=== PATIENT | male | born 1955 ===

== ENCOUNTER 2018-06-17 08:47 | Emergency (ER) | payer SELFPAY ==
[2018-06-17 08:49] VITALS: BMI 30.8
[2018-06-17 08:53] VITALS: TEMP 97.7
--- NOTE | 2018-06-17 09:39 | C.PDOC ---
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 presents to the ER with c/o new onset vertigo, dizziness since this morning. Patient reports it was present when he woke up, "feels like I am spinning". Associated symptoms includes headache. Patient states his BP is "207 " [employer]. Patient notes he took his BP medication and his BP has now improved. Patient denies n/v, URI, chest pain, palpitations, and new focal weakness. NEW ONSET VERTIGO DIZZY SINCE THIS MORNING. PRESENT WHEN AWOKE. "FEEL LIKE I AM SPINNING". +AHMADI. PS BP "207" [employer]IOR [employer]WORK [employer]CH[employer], TOOK BP MEDS NOW IMPROVED. NO NV, URI, CP, PALPITATIONS. HO CHRONIC R FACIAL DROOP DUE TO PRIOR CVA, STATES IS UNCH. DENIES NEW FOCAL WEAKNESS EXAM MILD DIST NONTOXIC HEENT NEURO CHRONIC R FACIAL HEMIPARESIS; SEE [facility] REMAINDER NEG Time Seen by Provider: 06/17/18 09:24 Chief Complaint (Nursing): High Blood Pressure History Per: Patient History/Exam Limitations: no limitations Onset/Duration Of Symptoms: Mins Past Medical History Reviewed: Historical Data, Nursing Documentation, Vital Signs Vital Signs: Last Vital Signs Temp 97.7 F 06/17/18 08:49 Pulse 70 06/17/18 10:40 Resp 16 06/17/18 10:40 BP 122/79 06/17/18 10:40 Pulse Ox 95 06/17/18 11:27 - Medical History PMH: HTN Family History: States: No Known Family Hx - Social History Hx Alcohol Use: No Hx Substance Use: No Review Of Systems Except As Marked, All Systems Reviewed And Found Negative. Cardiovascular: Negative for: Chest Pain, Palpitations Respiratory: Negative for: Other (URI) Gastrointestinal: Negative for: Nausea, Vomiting Neurological: Positive for: Dizziness, Other (vertigo; no new focal weakness) Physical Exam - Physical Exam Appears: Non-toxic, In Acute Distress (mild) Skin: Normal Color, Warm, Dry Head: Atraumatic, Normacephalic Eye(s): bilateral: Normal Inspection Ear(s): Bilateral: Normal Nose: Normal Oral Mucosa: Moist Throat: Normal Neck: Normal ROM, Supple Chest: Symmetrical, No Deformity Cardiovascular: Rhythm Regular Respiratory: Normal Breath Sounds, No Rales, No Rhonchi, No Wheezing Gastrointestinal/Abdominal: Soft, No Tenderness Back: No CVA Tenderness Extremity: Normal ROM (x4) Neurological/Psych: Oriented x3, Normal Speech, Normal Motor, Normal Sensation, Normal Reflexes, Other (chronic right facial hemiparesis) Gait: Steady ED Course And Treatment - Laboratory Results Result Diagrams: 06/17/18 10:08 06/17/18 10:08 ECG: Interpreted By Me ECG Rhythm: Sinus Rhythm ECG Interpretation: Normal Rate From EC O2 Sat by Pulse Oximetry: 95 Pulse Ox Interpretation: Normal - Other Rad CXR X-Ray: Read By Radiologist Interpretation: Accession No. : [id number]. Patient Name / ID : BRUCE MOLINA / [id number]. Exam Date : 06/17/2018 09:45:03 ( Approved ). Study Comment : Sex / Age : M / 62Y. Creator : Isidra Min V. Dictator : Isidra Min V. Rod Finisher : Plastic Roller : Isidra Min V. Approver2 : Report Date : 2017 11:18:45. My Comment : . Date of service: 06/17/2018. HISTORY: Code Stroke. COMPARISON: No prior. FINDINGS: LUNGS: No consolidation. PLEURA: No significant pleural effusion identified, no pneumothorax apparent. CARDIOVASCULAR: Top-normal heart size. Probable mild pulmonary venous congestion. OSSEOUS STRUCTURES: No significant abnormalities. VISUALIZED UPPER ABDOMEN: Normal. OTHER FINDINGS: None. IMPRESSION: Probable mild pulmonary venous congestion. - CT Scan/US Head Other Rad Studies (CT/US): Read By Radiologist, Radiology Report Reviewed CT/US Interpretation: Accession No. : [id number]. Patient Name / ID : BRUCE MOLINA / [id number]. Exam Date : 06/17/2018 10:29:10 ( Approved ). Study Comment : Sex / Age : M / 62Y. Creator : Genoveva Patterson. Dictator : Will Rodriguez MD. Rod Finisher : Plastic Roller : Will Rodriguez MD. Approver2 : Report Date : 06/17/2018 10:38:11. My Comment : . Date of service: 06/17/2018. PROCEDURE: CT HEAD WITHOUT CONTRAST. HISTORY : VERTIGO; HO PRIOR CVA. COMPARISON: None available. TECHNIQUE: Axial computed tomography images were obtained through the head/brain without intravenous contrast. Radiation dose: Total exam DLP = 965.05 mGy-cm. This CT exam was performed using one or more of the following dose reduction techniques: Automated exposure control, adjustment of the mA and/or kV according to patient size, and/or use of iterative reconstruction technique. FINDINGS: HEMORRHAGE: No intracranial hemorrhage. BRAIN: Trace patchy subcortical and centrum semiovale lucency appreciate compatible with chronic microangiopathy. No mass effect or cortical edema. No suspicious extra-axial collection identified in the posterior fossa contents are unremarkable including the brainstem. VENTRICLES: Unremarkable. No hydrocephalus. CALVARIUM: No fracture or destructive bony lesion identified. A small osteoma or exostosis is seen at the left frontal inner table. PARANASAL SINUSES: Unremarkable as visualized. No significant inflammatory changes. MASTOID AIR CELLS: Unremarkable as visualized. No inflammatory changes. OTHER FINDINGS: None. IMPRESSION: No definite acute intracranial findings by standard CT criteria. Limited age-related neuro degenerative change are identified. Follow -up CT or MRI are available if clinically warranted. Progress Note: Impression: vertigo and dizziness. Plans: -- blood work. -- EKG. -- CT head w/o contrast. -- CXR. -- Antivert. -- Apsirin. Reassess: Patient is resting comfortably, is tolerating PO, no neurologic deficit, photophobia, rash, fever, or nuchal rigidity. Patient was instructed to follow up with physician in 1-2 days. NIHSS Stroke Scale 2 - Date/Time Evaluation Performed Date Performed: 06/17/18 Time Performed: 09:39 When Was NIHSS Performed: Baseline - How Severe is the Stroke Level of Consciousness: 0=Alert LOC to Questions: 0=Both comments correct LOC to commands: 0=Obeys both correctly Best Gaze: 0=Normal Visual: 0=No visual loss Facial: 1=Minor asymmetry Motor Arm - Left: 0=No drift Motor Arm - Right: 0=No drift Motor Leg - Left: 0=No drift Motor Leg - Right: 0=No drift Limb Ataxia: 0=Absent Sensory: 0=Normal Best Language: 0=No aphasia Dysarthia: 0=Normal articulation Extinction & Inattention (Neglect): 0=Normal, no object Score: 1 Progress - Re-Evaluation Re-evaluation Note: 06/17/18 11:30 VERTIGO "MUCH IMPROVED" SP MECLIZINE. AMBUL WO DIFF NEURO INTACT VSS. NO HTN SINCE INITIAL EVAL - Data Reviewed Data Reviewed: Lab, Diagnostic imaging, EKG, Old records rTPA Inclusion/Exclusion - Refusal of Treatment Patient Refused Treatment: No - Inclusion Criteria for Altepase Patient is 18 years or Older: Yes The Clinical Diagnosis of Ischemic Stroke That is Causing a Potentially Disabling Neurological Deficit: No Time of Onset is Well Established to be Less Than 270 Minute Before Treatment Would Begin: Yes Risk/Benefit Discussed With Patient/Family Member Present: Yes - Exclusion Criteria for Altepase Uncontrolled Hypertension at Time of Treatment (Systolic BP above 185 or Diastolic BP above 110 mmHg): No Active Internal Bleeding: No Known Bleeding Diathesis Including but Not Limited to: Platelets Below 100,000/ mm,PTT Above 40 sec After Heparin Use, Current Use of Oral Anitcoagulant With INR Greater Than 1.7 or PT Greater Than 15 secs: No Evidence of an Intracranial Hemorrhage: No Evidence of Major Acute Infarct With Signs Greater Than 1/3 MCA Territory: No Suspicion of Subarachnoid Hemorrhage on Pretreatment Evaluation Even if CT Head Negative For Hemorrhage: No - Warning to TPA With Conditions Following Conditions Weighed Against Anticipated Benefit: Yes Condition: Stroke Serevity Too Mild Additional Condition (For 3-4.5 Hour Window): Prior Stroke and Diabetes Disposition Counseled Patient/Family Regarding: Studies Performed, Diagnosis, Need For Followup - Disposition Referrals: YOUR,PMD [Other] Disposition: HOME/ ROUTINE Disposition Time: 11:31 Condition: IMPROVED Prescriptions: Meclizine [Antivert] 50 mg PO TID PRN #21 tab PRN Reason: Dizziness Ondansetron [Zofran Odt] 4 mg PO TID PRN #9 odt PRN Reason: Nausea/Vomiting Instructions: Vertigo (a Type of Dizziness) (DC) Forms: [employer] (Kenyan) Print Language: CROATIAN - Clinical Impression Clinical Impression: Vertigo - Scribe Statement The provider has reviewed the documentation as recorded by the Veena Gregory Do Provider Attestation: All medical record entries made by the Veena were at my direction and personally dictated by me. I have reviewed the chart and agree that the record accurately reflects my personal performance of the history, physical exam, medical decision making, and the department course for this patient. I have also personally directed, reviewed, and agree with the discharge instructions and disposition.
[2018-06-17 10:23] LABS: BASO % 0.4 % (0.0-2.0); EOS # 0.3 K/uL (0.0-0.7); EOS % 3.3 % (0.0-4.0); LYMPH # 3.2 K/uL (1.0-4.3); LYMPH % 32.1 % (20.0-40.0); MEAN CORPUSCULAR HEMOGLOBIN 31.5 pg (27.0-31.0); MEAN CORPUSCULAR HGB CONC 34.2 g/dL (33.0-37.0); MEAN PLATELET VOLUME 7.5 fL (7.2-11.7); MONO # 0.8 K/uL (0.0-0.8); MONO % 7.7 % (0.0-10.0); NEUT # 5.7 K/uL (1.8-7.0); NEUT % 56.5 % (50.0-75.0); NRBC % 0.1 % (0.0-2.0); RBC 4.45 Mil/uL (4.40-5.90); RED CELL DISTRIBUTION WIDTH 13.4 % (11.5-14.5)
[2018-06-17 10:30] LABS: INR 1.1; PROTHROMBIN TIME 11.7 SECONDS (9.7-12.2)
[2018-06-17 10:37] LABS: ALB/GLOB RATIO 1.1 (1.0-2.1); ALT/SGPT 29 U/L (21-72); AST/SGOT 21 U/L (17-59); BLOOD UREA NITROGEN 15 mg/dL (9-20); CALCIUM 8.9 mg/dl (8.6-10.4); GFR AFRICAN-AMERICAN > 60; GFR NON-AFRICAN AMERICAN > 60; HDL CHOLESTEROL 22 mg/dL (30-70)
[2018-06-17 10:41] VITALS: BP 122/79; PULSE 70; RESP 16
[2018-06-17 10:48] LABS: LDL CHOLESTEROL 80 mg/dL (0-129)
--- NOTE | 2018-06-17 10:49 | CT ---
Date of service: 06/17/2018 PROCEDURE: CT HEAD WITHOUT CONTRAST. HISTORY: VERTIGO; HO PRIOR CVA COMPARISON: None available. TECHNIQUE: Axial computed tomography images were obtained through the head/brain without intravenous contrast. Radiation dose: Total exam DLP = 965.05 mGy-cm. This CT exam was performed using one or more of the following dose reduction techniques: Automated exposure control, adjustment of the mA and/or kV according to patient size, and/or use of iterative reconstruction technique. FINDINGS: HEMORRHAGE: No intracranial hemorrhage. BRAIN: Trace patchy subcortical and centrum semiovale lucency appreciate compatible with chronic microangiopathy. No mass effect or cortical edema. No suspicious extra-axial collection identified in the posterior fossa contents are unremarkable including the brainstem. VENTRICLES: Unremarkable. No hydrocephalus. CALVARIUM: No fracture or destructive bony lesion identified. A small osteoma or exostosis is seen at the left frontal inner table. PARANASAL SINUSES: Unremarkable as visualized. No significant inflammatory changes. MASTOID AIR CELLS: Unremarkable as visualized. No inflammatory changes. OTHER FINDINGS: None. IMPRESSION: No definite acute intracranial findings by standard CT criteria. Limited age-related neuro degenerative change are identified. Follow-up CT or MRI are available if clinically warranted.
--- NOTE | 2018-06-17 11:20 | RAD ---
Date of service: 06/17/2018 HISTORY: Code Stroke COMPARISON: No prior. FINDINGS: LUNGS: No consolidation. PLEURA: No significant pleural effusion identified, no pneumothorax apparent. CARDIOVASCULAR: Top-normal heart size. Probable mild pulmonary venous congestion OSSEOUS STRUCTURES: No significant abnormalities. VISUALIZED UPPER ABDOMEN: Normal. OTHER FINDINGS: None. IMPRESSION: Probable mild pulmonary venous congestion.
[2018-06-17 11:27] VITALS: O2SAT 95
--- NOTE | 2018-06-17 15:24 | CARD ---
APPROVED REPORT Date of service: 06/17/2018 EKG Measurement Heart [id number] <Conclusion> Normal sinus rhythm Normal ECG
== END 2018-06-17 11:47 | disposition home or self-care (01) ==
LOC: C.ER 08:47
DX: R42 Dizziness and giddiness (principal); I10 Essential (primary) hypertension; R29.810 Facial weakness; Z86.73 Personal history of transient ischemic attack (TIA), and cerebral infarction without residual deficits